=== PATIENT | male | born 1955 | race Caucasian/White ===

== ENCOUNTER 2019-10-14 05:31 | Day surgery (SDC) | payer MEDICARE, BC ==
[2019-10-07 15:39] LABS: BASOPHILS % (AUTO) 0.5 % (0-1); EOSINOPHILS # (AUTO) 0.2 X10'3 (0-0.9); EOSINOPHILS % (AUTO) 2.6 % (0-6); LYMPHOCYTES # (AUTO) 1.9 X10'3 (1.1-4.8); LYMPHOCYTES % (AUTO) 32.7 % (21-51); MEAN CORPUSCULAR HGB CONC 33.4 g/dL (33.0-36.5); MEAN CORPUSCULAR VOLUME 95.6 FL (78-98); MEAN PLATELET VOLUME 8.1 FL (7.4-10.4); MONOCYTES # (AUTO) 0.5 X10'3 (0-0.9); MONOCYTES % (AUTO) 9.1 % (2-12); NEUTROPHILS # (AUTO) 3.2 X10'3 (1.8-7.7); NEUTROPHILS % (AUTO) 55.1 % (42-75); PRE OP HEMATOCRIT 40.5 % (42.0-52.0); PRE OP HEMOGLOBIN 13.5 g/dL (14.0-17.9); PRE OP PLATELET COUNT 209 X10'3 (140-440); RED BLOOD COUNT 4.24 X10'6 (4.70-6.10); RED CELL DISTRIBUTION WIDTH 13.2 % (11.5-14.5)
[2019-10-07 15:48] LABS: ALBUMIN/GLOBULIN RATIO 1.2 (1.1-1.5); ALKALINE PHOSPHATASE 51 IU/L (46-116); BLOOD UREA NITROGEN 20 MG/DL (7-18); BUN/CREATININE RATIO 12.8 (5.4-32.0); CALCIUM 9.2 MG/DL (8.5-10.1); CHLORIDE 106 MMOL/L (99-107); CREATININE 1.56 MG/DL (0.60-1.10); PRE OP ALT 33 U/L (30-65); PRE OP ANION GAP 9 (8-16); PRE OP AST 21 U/L (10-37); PRE OP BILIRUB, TOTAL 0.4 MG/DL (0.0-1.0); PRE OP GLUCOSE 84 MG/DL (70-104); PRE OP SODIUM 142 MMOL/L (135-145); TOTAL CARBON DIOXIDE 26.8 MMOL/L (24-32); TOTAL PROTEIN 7.4 G/DL (6.4-8.2); eGFR 45 ML/MIN
[2019-10-14] VITALS (9 sets, daily range): BP systolic 115–159; BP diastolic 75–85
[~2019-10-14] VITALS: Ht 175.3 cm; Wt 83.0 kg
[~2019-10-14 05:31] MED LIST: DOCUMENT DATE & TIME OF BETA-BLOCKER PO ONE; METO-384 PO; TELM80TA9 PO; TERA1CAP4 PO; ceFAZolin 2gm in dextrose, iso 50 ML IV ONE; famotidine 20mg tablet PO ONE; ringers solution, lacted 1,000 ML IV SCH
[2019-10-14] MEDS ORDERED: LIDOcaine 1% (10mg/ml) 2ml vial ONE (06:24)
[2019-10-14] MEDS ORDERED: LIDOcaine 1% 30ml preserv. free vial ONE (06:46)
[2019-10-14] MEDS ORDERED: BUPIVAcaine/PF 2.5 mg/ml (0.25%) 30ml vial ONE (06:46)
[2019-10-14] MEDS ORDERED: sevoflurane 250ml liquid IH ONE (07:30)
[2019-10-14] MEDS ORDERED: fentaNYL/PF 50MCG/1 ML 2ML syringe ONE (07:46)
[2019-10-14] MEDS ORDERED: midazolam 2 mg/2 ml injection ONE (07:46)
[2019-10-14] MEDS ORDERED: LIDOcaine 2% (20mg/ml) 5ml vial ONE (08:12)
[2019-10-14] MEDS ORDERED: propofol inj 20 ML IV ONE (08:12)
[2019-10-14] MEDS ORDERED: glycopyrrolate 0.2mg/ml inj ONE (08:12)
[2019-10-14] MEDS ORDERED: ondansetron/PF 4mg/2ml inj ONE (08:12)
[2019-10-14] MEDS ORDERED: dexamethasone sod phosphate 4mg/ml inj. ONE (08:12)
[2019-10-14] MEDS ORDERED: meperidine/PF 25mg/ml syringe ONE (08:30)
--- NOTE | 2019-10-14 08:31 | NUR ---
Received from OR via aquiles, accompanied by Anesthesiologist Shivam and report given by Anesthesiolgist. Pt is alert and responsive to questions, all VS stable mask to 10L and sats 99%. 20G IV to left AC LR at 100cc/hr. Very small dressing to umbilicus present CDI. Moves all extremeties, no bentley cath, will monitor closely.
[2019-10-14] MEDS ORDERED: ringers solution, lacted 1,000 ML IV SCH (08:34)
[2019-10-14] MEDS ORDERED: morphine 4 MG/ML inj SYRINge IV PRN (08:35)
[2019-10-14] MEDS ORDERED: proCHLORperazine 10 MG/2 ml inj IV PRN (08:35)
[2019-10-14] MEDS ORDERED: morphine 2 MG/ML inj. syringe IV PRN (08:35)
[2019-10-14] MEDS ORDERED: meperidine/PF 25mg/ml syringe IV PRN ×3 (08:35)
[2019-10-14] MEDS ORDERED: ondansetron/PF 4mg/2ml inj IV PRN (08:35)
[2019-10-14] MEDS ORDERED: oxyCODONE/APAP 5-325mg tablet PO PRN (09:00)
--- NOTE | 2019-10-14 11:21 | NUR ---
Pt discharged by wheelchair to vehicle without issue. IV DC'd, pt and verbalized understanding of all DC instructions. Surgical site remains CDI. Pain meds faxed to pharmacy from already. All belongings returned to patient. He has ambulated, tolerated PO fluids and voided multiple times.
== END 2019-10-14 11:21 | disposition home or self-care (01) ==
LOC: PAS 05:31
PROVIDERS: ATTEND Surgery
DX: K42.9 Umbilical hernia without obstruction or gangrene (principal); I10 Essential (primary) hypertension; N40.0 Benign prostatic hyperplasia without lower urinary tract symptoms; Z11.59 Encounter for screening for other viral diseases; Z79.899 Other long term (current) drug therapy; Z72.89 Other problems related to lifestyle; Z98.890 Other specified postprocedural states; Z87.891 Personal history of nicotine dependence; Z88.0 Allergy status to penicillin; Z88.5 Allergy status to narcotic agent; Z88.2 Allergy status to sulfonamides; Z82.3 Family history of stroke; Z82.49 Family history of ischemic heart disease and other diseases of the circulatory system; Z80.0 Family history of malignant neoplasm of digestive organs; Z83.2 Family history of diseases of the blood and blood-forming organs and certain disorders involving the immune mechanism
CPT/HCPCS: 36415; 49585; 80053; 82948; 85025; 93005; C1781; J1100; J2001; J2175; J2250; J2405; J2704; J3010; J3490; J7120; U0003; A4618; A6258; A7000

== ENCOUNTER 2023-08-06 10:05 | Emergency (ER) | payer MEDICARE, BC ==
[~2023-08-06] VITALS: Ht 175.3 cm; Wt 84.0 kg
[~2023-08-06 10:05] MED LIST changes: -DOCUMENT DATE & TIME OF BETA-BLOCKER PO ONE; -ceFAZolin 2gm in dextrose, iso 50 ML IV ONE; -famotidine 20mg tablet PO ONE; -ringers solution, lacted 1,000 ML IV SCH
[2023-08-06 10:29] VITALS: BP 185/94; PULSE 53; RESP 16; TEMP 97.3; O2SAT 99
[2023-08-06] MEDS ORDERED: APIX5TAB5 PO (11:03)
== END 2023-08-06 11:10 | disposition home or self-care (01) ==
LOC: ER 10:06
DX: I82.442 Acute embolism and thrombosis of left tibial vein (principal); Z88.0 Allergy status to penicillin; Z88.2 Allergy status to sulfonamides; Z88.8 Allergy status to other drugs, medicaments and biological substances
CPT/HCPCS: 99283